=== PATIENT | female | born 1960 | race Caucasian/White ===

== ENCOUNTER 2023-06-15 17:31 | Inpatient (IN) | payer OTHER ==
[~2023-06-15] VITALS: Ht 162.6 cm; Wt 90.7 kg
--- NOTE | 2023-06-15 17:52 | NUR ---
PACIENTE TRAIDO EN AMBULANCIA CON MASCARILLA NON REBREATHER EN DISTRES RESPIRATORIO Y TOS SON ESPUTUM CRUZ. SE PASA DE INMEDIATO A CAMA DE CRITICO #1. SE CONECTA A MONITOR CARDIACO Y OXIMETRIA DE PULSO. SE INTENTA CHRISTEN MEDICAMENTOS Y ALERGIAS DEL ESPOSO DE LA PACIENTE Y EL MISMO NO SE LOS SABE
--- NOTE | 2023-06-15 17:55 | NUR ---
PARAMEDICOS REFIEREN QUE LE DIERON 40 MG DE LASIX Y 3 EPINEFRINAS DE 0.3MG
[2023-06-15 18:07] LABS: HEMATOCRIT 42.9 % (36.0-45.00); HEMOGLOBIN 14.2 g/dL (12.0-15.00); MEAN CELL VOLUME 95.8 fL (80.00-100.00); MEAN CORPUSCULAR HEMOGLOBIN 31.6 pg (27.00-32.0); PLATELET COUNT 208 K/uL (150-450); RED BLOOD COUNT 4.48 M/uL (4.00-6.00); RED CELL DISTRIBUTION WIDTH 14.5 % (11.5-14.5)
[2023-06-15 18:27] LABS: URINE APPEARANCE Clear; URINE BACTERIA 409.3 uL (0.0-1933); URINE BILIRRUBIN Negative (NEGATIVE); URINE BLOOD Negative; URINE COLOR Yellow; URINE GLUCOSE Negative (NEGATIVE); URINE LEUKOCYTE Negative; URINE NITRATE Negative; URINE RBC 10.9 uL (0.0-20.8); URINE UROBILINOGEN 0.2 E.U./dl; URINE WBC 9.1 uL (0.0-23.2)
--- NOTE | 2023-06-15 18:31 | NUR ---
SE ORIENTA PTE SOBRE TX MEDICO EL CUAL REFIERE ENTENDER.SE LE EXTRAEN MUESTRAS BAJO MEDIDAS ASEPTICAS,SE CANALIZA Y SE ADMINISTRAN MEDICAMENTOS ROMY ORDEN MEDICA,SE NOTIFICA A MS WOLF BPAP,ABG Y TERAPIAS RESP,SE LE INSERTA GRIDER.SE NOTIFICA PLACA PENDIENTE Y SE REALIZA EKG QUE SE MUESTRA A DR PRETTY.
--- NOTE | 2023-06-15 18:32 | NUR ---
AL MOMENTO PTE TOLERA BPAP.
[2023-06-15 18:34] LABS: URINE PROTEIN 100 (NEGATIVE)
[2023-06-15 18:35] LABS: URINE YEAST FEW /hpf
[2023-06-15 19:13] LABS: INR 1.14; PARTIAL THROMBOPLASTIN TIME 28.9 SECONDS (22.0-34.0); PROTHROMBIN TIME 11.9 SECONDS (9.0-11.5)
[2023-06-15 19:54] LABS: CALCIUM 9.3 mg/dL (8.5-10.1); CREATININE SERUM 1.39 mg/dL (0.55-1.02); GFR 38.17
[2023-06-15 19:59] LABS: POTASSIUM 5.91 mEq/L (3.5-5.1)
[2023-06-15 20:06] LABS: ABG PH 7.361 (7.35-7.45); ABG PO2 156.2 mmHg (80-100); BASE EXCESS -2.5 mmol/l; BICARBONATE 22.7 mmol/l (23-25); SaO2 99.3 %
[2023-06-15 20:21] LABS: o2 80 %
[2023-06-15 20:22] LABS: allen test SATISFACTORY; puncture site RADIAL RIGHT
--- NOTE | 2023-06-15 21:16 | NUR ---
SE REALIZAN ABG Y AJUSTE A PARAMETROS DE BPAP I-12, E-6, R-16, O2 60%.PE TOLERA.
[2023-06-16 00:22] LABS: ABG PH 7.389 (7.35-7.45); ABG PO2 104.2 mmHg (80-100); ABG pCO2 38.1 mmHg (35-45); BASE EXCESS -2.1 mmol/l; BICARBONATE 22.5 mmol/l (23-25); SaO2 97.8 %; Tco2 23.7 mmol/l
[2023-06-16 06:02] LABS: allen test SATISFACTORY; o2 60 %; puncture site RADIAL RIGHT
[2023-06-16 09:09] LABS: TSH 0.326 uIU/mL (0.358-3.74)
[2023-06-16 10:59] LABS: ABG PO2 163.7 mmHg (80-100); ABG pCO2 35.9 mmHg (35-45); BASE EXCESS -2.3 mmol/l; BICARBONATE 21.8 mmol/l (23-25); SaO2 99.4 %; Tco2 22.9 mmol/l; o2 60 %
[2023-06-16 11:00] LABS: allen test SATISFACTORY; puncture site RADIAL RIGHT
[2023-06-18 07:03] LABS: ALBUMIN 3.5 gm/dL (3.4-5.0); CALCIUM 9.5 mg/dL (8.5-10.1); CREATININE SERUM 1.24 mg/dL (0.55-1.02); GFR 43.41; PHOSPHOROUS 3.2 mg/dL (2.5-4.9); POTASSIUM 4.08 mEq/L (3.5-5.1)
[2023-06-18 14:21] LABS: ABG PH 7.449 (7.35-7.45); ABG PO2 69.4 mmHg (80-100); ABG pCO2 44.8 mmHg (35-45); BASE EXCESS 5.6 mmol/l; BICARBONATE 30.4 mmol/l (23-25); SaO2 94.8 %; Tco2 31.8 mmol/l
[2023-06-18 14:24] LABS: allen test SATISFACTORY; o2 21 %; puncture site RADIAL RIGHT
[2023-06-20 08:05] LABS: HEMATOCRIT 38.4 % (36.0-45.00); HEMOGLOBIN 12.9 g/dL (12.0-15.00); MEAN CELL VOLUME 94.7 fL (80.00-100.00); MEAN CORPUSCULAR HEMOGLOBIN 31.8 pg (27.00-32.0); MEAN CORPUSCULAR HGB CONC 33.6 g/dl (32.0-36.0); PLATELET COUNT 140 K/uL (150-450); RED BLOOD COUNT 4.05 M/uL (4.00-6.00); RED CELL DISTRIBUTION WIDTH 14.2 % (11.5-14.5)
[2023-06-20 08:40] LABS: ALBUMIN 3.3 gm/dL (3.4-5.0); BILIRUBIN TOTAL 0.57 mg/dL (0.3-1.2); CALCIUM 9.2 mg/dL (8.5-10.1); CREATININE SERUM 2.13 mg/dL (0.55-1.02); GFR 23.25; POTASSIUM 3.84 mEq/L (3.5-5.1); TOTAL PROTEIN 6.3 gm/dL (6.4-8.2)
[2023-06-21 06:50] LABS: BILIRUBIN TOTAL 0.46 mg/dL (0.3-1.2); CREATININE SERUM 1.44 mg/dL (0.55-1.02); GFR 36.53; POTASSIUM 4.28 mEq/L (3.5-5.1)
[2023-06-21] MEDS ORDERED: XARELTO10 MG PO (08:17)
[2023-06-21] MEDS ORDERED: LIPITOR40 M1 PO (08:17)
[2023-06-21] MEDS ORDERED: IPRATROPIU0.2 MG/1 M IH (08:17)
[2023-06-21] MEDS ORDERED: CLOPIDOGREL BIS75 MG PO (08:17)
[2023-06-21] MEDS ORDERED: NICOTINE PATCH1 EACH TD (08:17)
[2023-06-21] MEDS ORDERED: TUSSIN DM LIQU118 ML PO (08:18)
[2023-06-21] MEDS ORDERED: ISOSORBIDE MONO30 MG PO (08:18)
[2023-06-21] MEDS ORDERED: FUROSEMIDE20 MG PO (08:18)
[2023-06-21] MEDS ORDERED: HYDRALAZINE HCL25 MG PO (08:18)
[2023-06-21] MEDS ORDERED: PANTOPRAZOLE SO40 MG PO (08:19)
[2023-06-21] MEDS ORDERED: LEVOTHYROXINE50 MCG PO (08:19)
== END 2023-06-21 09:57 | disposition home or self-care (01) | DRG 280 ==
LOC: ER 17:31 → ICU 23:07 → ICU-2 23:07 → ICU 06-16 02:36 → MEDI 06-19 14:39
PROVIDERS: Emergency Medicine; General Practice; Internal Medicine; Internal Medicine Critical Care Medicine; ADMIT Internal Medicine; ATTEND Internal Medicine
PROC: B246ZZZ Ultrasonography of Right and Left Heart (ICD-10-PCS; principal; 2023-06-15)
PROC: 5A09457 Assistance with Respiratory Ventilation, 24-96 Consecutive Hours, Continuous Positive Airway Pressure (ICD-10-PCS; 2023-06-15)
PROC: 3E0F7GC Introduction of Other Therapeutic Substance into Respiratory Tract, Via Natural or Artificial Opening (ICD-10-PCS; 2023-06-17)
PROC: 4A12X4Z Monitoring of Cardiac Electrical Activity, External Approach (ICD-10-PCS; 2023-06-20)
DX: I21.4 Non-ST elevation (NSTEMI) myocardial infarction (principal); I50.23 Acute on chronic systolic (congestive) heart failure; J44.1 Chronic obstructive pulmonary disease with (acute) exacerbation; N17.8 Other acute kidney failure; I13.0 Hypertensive heart and chronic kidney disease with heart failure and stage 1 through stage 4 chronic kidney disease, or unspecified chronic kidney disease; I11.0 Hypertensive heart disease with heart failure; Z72.0 Tobacco use; I50.84 End stage heart failure; E03.8 Other specified hypothyroidism; Z79.4 Long term (current) use of insulin; E78.49 Other hyperlipidemia; E11.22 Type 2 diabetes mellitus with diabetic chronic kidney disease

== ENCOUNTER → 2023-09-24 08:21 | Outpatient (CLI) | payer OTHER ==
[~2023-09-24 08:21] MED LIST: CLOPIDOGREL BIS75 MG PO; FUROSEMIDE20 MG PO; HYDRALAZINE HCL25 MG PO; IPRATROPIU0.2 MG/1 M IH; ISOSORBIDE MONO30 MG PO; LEVOTHYROXINE50 MCG PO; LIPITOR40 M1 PO; NICOTINE PATCH1 EACH TD; PANTOPRAZOLE SO40 MG PO; TUSSIN DM LIQU118 ML PO; XARELTO10 MG PO
== END | disposition home or self-care (01) ==
LOC: NUCLEAR 08:21
PROVIDERS: ATTEND Internal Medicine
DX: I11.0 Hypertensive heart disease with heart failure (principal); I50.20 Unspecified systolic (congestive) heart failure

== ENCOUNTER 2024-03-31 08:29 | Outpatient (CLI) | payer OTHER | END 2024-03-31 08:44 | disposition home or self-care (01) | LOC: SONOGRAMA 08:29 | PROVIDERS: ATTEND Obstetrics & Gynecology | DX: N84.0 Polyp of corpus uteri (principal) ==

== ENCOUNTER 2025-07-17 07:37 | Outpatient (CLI) | payer OTHER | END 2025-07-17 07:38 | disposition home or self-care (01) | LOC: NUCLEAR 07:37 | PROVIDERS: ATTEND Internal Medicine | DX: I50.20 Unspecified systolic (congestive) heart failure (principal); I10 Essential (primary) hypertension ==

== ENCOUNTER → 2025-07-17 08:09 | Outpatient (CLI) | payer OTHER ==
[2025-07-17 09:50] LABS: CREATININE SERUM 0.89 mg/dL (0.55-1.02)
== END | disposition home or self-care (01) ==
LOC: LAB 08:09
PROVIDERS: ATTEND Radiology Diagnostic Radiology
DX: M17.11 Unilateral primary osteoarthritis, right knee (principal)

== ENCOUNTER 2025-07-17 10:38 | Outpatient (CLI) | payer OTHER | END 2025-07-17 10:49 | disposition home or self-care (01) | LOC: MRI 10:38 | PROVIDERS: ATTEND Obstetrics & Gynecology | DX: R93.89 Abnormal findings on diagnostic imaging of other specified body structures (principal); R10.20 Pelvic and perineal pain unspecified side; N95.0 Postmenopausal bleeding; M17.11 Unilateral primary osteoarthritis, right knee; M25.561 Pain in right knee | CPT/HCPCS: 72196; 73721 ==